=== PATIENT | female | born 1945 | race Caucasian/White ===

== ENCOUNTER 2016-10-07 07:10 | Day surgery (SDC) | payer MEDICARE, BC ==
[~2016-10-07 07:10] MED LIST: Acetaminophen TAB* 325 MG PO PRN; Buffered Lidocaine 0.9% SYRIN* 5 ML/SYR SYRINGE INTRADERM ONE
[2016-10-07] MEDS ORDERED: Midazolam* 1 MG/ML 2 ML VIAL (2 MG) ONE (08:03)
[2016-10-07] MEDS ORDERED: fentaNYL* 50 MCG/ML 2 ML VIAL (100 MCG VIAL) ONE (08:03)
[2016-10-07 09:21] VITALS: BP 108/55
--- NOTE | 2016-10-07 09:28 | OP ---
DATE OF OPERATION: 10/07/2016. DATE OF : 1945. SURGEON: Kieran Hanson M.D. PREOPERATIVE DIAGNOSIS: Cataract left eye. POSTOPERATIVE DIAGNOSIS: Cataract left eye. OPERATIVE PROCEDURE: Phacoemulsification left eye with IOL. PROCEDURE: The patient was brought to the operating room after being given 1/2% Alcaine with epinep hrine drops in the preoperative area. The eye was prepped and draped in the usual sterile fashion. Sterile drape and eyelid speculum were placed. Again, topical 1/2% Alcaine with epinephrine was gi bushra. A paracentesis incision was made at the 3 o'clock position with the No.75 blade. Clear cornea incision 2.2 x 2.2-mm was created at the 6 o'clock position starting at the anterior limbus using t he 2.2-mm keratome. The anterior chamber was irrigated with 0.4 mL of 1% non-preservative intracame ral lidocaine and filled with DisCoVisc. A capsulorrhexis was completed using the cystotome and the Utrata forceps. Hydrodissection was performed with balanced salt solution. The lens nucleus was re moved with the Phacoemulsification handpiece without incident. Cortex was removed with the irrigati on-aspiration handpiece. The capsular bag was re-inflated using DisCoVisc and an [id number] implant was inserted with the shooter. The irrigation-aspiration handpiece was used to remove all residual DisCoVisc. The eye was refilled with balanced salt solution and the wound checked and found to be w atertight. Topical Maxitrol drops were given. [id number]/[facility] #: [id number]
[2016-10-07] MEDS ORDERED: Povidone Iodine 5% OPTH* 30 ML BTL ONE (10:04)
[2016-10-07] MEDS ORDERED: Proparacaine 0.5% OPHTH.SOL* 15 ML BTL ONE (10:04)
[2016-10-07] MEDS ORDERED: acetaZOLAMIDE TAB* 250 MG ONE (10:04)
[2016-10-07] MEDS ORDERED: Flurbiprofen 0.03% OPTH.SOL* 2.5 ML BTL ONE (10:04)
[2016-10-07] MEDS ORDERED: Buffered Lidocaine 0.9% SYRIN* 5 ML/SYR SYRINGE ONE (10:04)
[2016-10-07] MEDS ORDERED: Cyclopentolate 1% OPTH.SOL* 2 ML BTL ONE (10:04)
[2016-10-07] MEDS ORDERED: Lidocaine 1% MPF* 2 ML VIAL ONE (10:04)
[2016-10-07] MEDS ORDERED: Phenylephrine 2.5% OPTH.SOL* 2 ML BTL ONE (10:04)
[2016-10-07] MEDS ORDERED: Neomycin/Polymy/Dex OPTH.SUSP* MAXITROL 0.1% 5 ML ONE (10:04)
== END 2016-10-07 09:17 | disposition home or self-care (01) ==
LOC: OREAST 07:10
PROVIDERS: ATTEND Specialist
DX: H25.812 Combined forms of age-related cataract, left eye (principal); H35.372 Puckering of macula, left eye; Z87.891 Personal history of nicotine dependence
CPT/HCPCS: A9270-GY; J2250; J3010; V2632

== ENCOUNTER 2016-10-21 09:13 | Day surgery (SDC) | payer MEDICARE, BC ==
[2016-10-21] MEDS ORDERED: acetaZOLAMIDE TAB* 250 MG ONE (10:40)
[2016-10-21] MEDS ORDERED: Povidone Iodine 5% OPTH* 30 ML BTL ONE (10:40)
[2016-10-21] MEDS ORDERED: Cyclopentolate 1% OPTH.SOL* 2 ML BTL ONE (10:40)
[2016-10-21] MEDS ORDERED: Neomycin/Polymy/Dex OPTH.SUSP* MAXITROL 0.1% 5 ML ONE (10:40)
[2016-10-21] MEDS ORDERED: Lidocaine 1% MPF* 2 ML VIAL ONE (10:40)
[2016-10-21] MEDS ORDERED: Phenylephrine 2.5% OPTH.SOL* 2 ML BTL ONE (10:40)
[2016-10-21] MEDS ORDERED: Proparacaine 0.5% OPHTH.SOL* 15 ML BTL ONE (10:41)
[2016-10-21] MEDS ORDERED: Buffered Lidocaine 0.9% SYRIN* 5 ML/SYR SYRINGE ONE (10:41)
[2016-10-21] MEDS ORDERED: Ketorolac 0.5% OPHTH (NF) 0.5 % 5 ML BTL ONE (10:41)
[2016-10-21] MEDS ORDERED: fentaNYL* 50 MCG/ML 2 ML VIAL (100 MCG VIAL) ONE (11:25)
[2016-10-21] MEDS ORDERED: Midazolam* 1 MG/ML 2 ML VIAL (2 MG) ONE ×2 (11:25→11:41)
[2016-10-21 12:55] VITALS: BP 113/79
--- NOTE | 2016-10-21 13:16 | OP ---
DATE OF OPERATION: 10/21/2016. DATE OF : 1945. SURGEON: Kieran Hanson M.D. PREOPERATIVE DIAGNOSIS: Cataract right eye. POSTOPERATIVE DIAGNOSIS: Cataract right eye. OPERATIVE PROCEDURE: Phacoemulsification right eye with IOL. PROCEDURE: The patient was brought to the operating room after being given 1/2% Alcaine with epinep hrine drops in the preoperative area. The eye was prepped and draped in the usual sterile fashion. Sterile drape and eyelid speculum were placed. Again, topical 1/2% Alcaine with epinephrine was gi bushra. A paracentesis incision was made at the 9 o'clock position with the No.75 blade. Clear cornea incision 2.2 x 2.2-mm was created at the 12 o'clock position starting at the anterior limbus using the 2.2-mm keratome. The anterior chamber was irrigated with 0.4 mL of 1% non-preservative intracam eral lidocaine and filled with DisCoVisc. A capsulorrhexis was completed using the cystotome and madai e Utrata forceps. Hydrodissection was performed with balanced salt solution. The lens nucleus was r emoved with the Phacoemulsification handpiece without incident. Cortex was removed with the irrigat ion-aspiration handpiece. The capsular bag was re-inflated using DisCoVisc and an [id number] implant was inserted with the shooter. The irrigation-aspiration handpiece was used to remove all residual DisCoVisc. The eye was refilled with balanced salt solution and the wound checked and found to be watertight. Topical Maxitrol drops were given. [id number]/[facility] #: [id number]
== END 2016-10-21 12:53 | disposition home or self-care (01) ==
LOC: OREAST 09:13
PROVIDERS: ATTEND Specialist
DX: H25.811 Combined forms of age-related cataract, right eye (principal); H35.372 Puckering of macula, left eye
CPT/HCPCS: A9270-GY; J2250; J3010; V2632

== ENCOUNTER 2018-08-23 08:26 | Emergency (ER) | payer MEDICARE, BC ==
[2018-08-23 08:38] VITALS: BP 122/60
--- NOTE | 2018-08-23 08:50 | UC ---
Skin Complaint HPI - HPI Summary HPI Summary: right hand pain x 2 days pain is 3 out of 10 , no known injury , ? insect bite pain is worse with using her right hand , better with rest associated sx: redness, swelling, warm to touch , denies any fever, no chills - History of Current Complaint Chief Complaint: UCUpperExtremity Time Seen by Provider: 08/23/18 08:32 Stated Complaint: RT HAND INJURY Hx Obtained From: Patient Onset/Duration: Gradual Onset, Lasting Days - 2, Still Present Timing: Constant Onset Severity: Moderate Current Severity: Moderate Pain Intensity: 3 Location: Discrete - right hand Character: Swelling, Pain, Redness, Raised, Painful Aggravating Factor(s): Touch Alleviating Factor(s): Nothing Associated Signs & Symptoms: Positive: Tenderness. Negative: Nausea, Vomiting, Numbness, Weakness, Fever, Chills, Red Streaks - Allergy/Home Medications Allergies/Adverse Reactions: Allergies Allergy/AdvReac Type Severity Reaction Status Date / Time shellfish derived Allergy Diarrhea Verified 08/23/18 08:38 PMH/Surg Hx/FS Hx/Imm Hx Previously Healthy: Yes - Surgical History Surgical History: Yes Surgery Procedure, Year, and Place: appendectomy 30-40 years ago. tonsillectomy as a child - Family History Known Family History: Positive: Non-Contributory - Social History Alcohol Use: Rare Substance Use Type: None Smoking Status (MU): Never Smoked Tobacco Review of Systems All Other Systems Reviewed And Are Negative: Yes Constitutional: Positive: Negative Eyes: Positive: Negative ENT: Positive: Negative Is Patient Immunocompromised?: No Physical Exam Triage Information Reviewed: Yes Appearance: Well-Appearing, No Pain Distress, Well-Nourished Vital Signs: Initial Vital Signs Temp 98 F 08/23/18 08:32 Pulse 68 08/23/18 08:32 Resp 18 08/23/18 08:32 BP 122/60 08/23/18 08:32 Pulse Ox 98 08/23/18 08:32 Vital Signs Reviewed: Yes Eye Exam: Normal Eyes: Positive: Conjunctiva Clear ENT: Positive: Normal ENT inspection, Hearing grossly normal, Pharynx normal Neck exam: Normal Respiratory: Positive: Chest non-tender, Lungs clear, Normal breath sounds Cardiovascular: Positive: RRR, No Murmur, Pulses Normal Skin: Positive: Other - right hand : + swelling, erythema, tender to touch , warm to touch Course/Dx - Diagnoses Provider Diagnosis: Cellulitis of right hand Discharge - Sign-Out/Discharge Documenting (check all that apply): Patient Departure All imaging exams completed and their final reports reviewed: No Studies - Discharge Plan Condition: Stable Disposition: HOME Prescriptions: Cephalexin CAP* [Keflex CAP*] 500 mg PO TID #30 cap Patient Education Materials: Cellulitis (DC) Referrals: Blanche Headley MD [Primary Care Provider] - 5 Days - Billing Disposition and Condition Condition: STABLE Disposition: Home
== END 2018-08-23 08:54 | disposition home or self-care (01) ==
LOC: UCEAST 08:26
DX: L03.113 Cellulitis of right upper limb (principal)
CPT/HCPCS: 99212; G0463

== ENCOUNTER 2018-09-13 11:43 | Emergency (ER) | payer MEDICARE, BC ==
[2018-09-13 12:24] VITALS: BP 134/59
--- NOTE | 2018-09-13 12:45 | UC ---
Complaint Female HPI - HPI Summary HPI Summary: 72 yo female presents with 2 complaints: 1) This morning she developed urinary frequency, burning, and bladder pressure. She has had many UTIs in the past and states this feels the same. She took AZO this morning and felt much better. 2) She tells me that about 1 month ago she was placed on keflex for a hand cellulitis and developed hives while taking this. She states that she "never had trouble breathing" so she dealt with the hives and continued the keflex. Since taking the keflex she has felt that she has "low energy". She is eating and drinking well, but states she feels that her energy is not what it used to be. She has an appt next week with her PCP to discuss this. Denies fever, chills, headache, dizziness, SOB, chest pain, palpitations, abdominal pain, n/v, flank pain, hematuria - History Of Current Complaint Chief Complaint: UCGU Stated Complaint: URINE ISSUES Time Seen by Provider: 09/13/18 12:45 Hx Obtained From: Patient Onset/Duration: Gradual Onset Severity Initially: Mild Severity Currently: Mild Pain Intensity: 2 Pain Scale Used: 0-10 Numeric - Allergies/Home Medications Allergies/Adverse Reactions: Allergies Allergy/AdvReac Type Severity Reaction Status Date / Time cephalexin [From Keflex] Allergy Hives Verified 09/13/18 12:21 shellfish derived Allergy Diarrhea Verified 08/23/18 08:38 PMH/Surg Hx/FS Hx/Imm Hx - Additional Past Medical History Additional PMH: None - Surgical History Surgical History: Yes Surgery Procedure, Year, and Place: appendectomy 30-40 years ago. tonsillectomy as a child - Family History Known Family History: Positive: Non-Contributory - Social History Occupation: Retired Lives: With Family Alcohol Use: Rare Substance Use Type: None Smoking Status (MU): Never Smoked Tobacco Review of Systems All Other Systems Reviewed And Are Negative: Yes Constitutional: Positive: Fatigue Skin: Positive: Negative Eyes: Positive: Negative ENT: Positive: Negative Respiratory: Positive: Negative Cardiovascular: Positive: Negative Gastrointestinal: Positive: Negative Genitourinary: Positive: Dysuria Neurovascular: Positive: Negative Neurological: Positive: Negative Psychological: Positive: Negative Physical Exam - Summary Physical Exam Summary: GENERAL: NAD. WDWN. No pain distress. SKIN: No rashes, sores, or open wounds. HEENT: Head: AT/NC Eyes: PERRLA. EOM intact. Conjunctiva clear without inflammation or discharge. Ears: Hearing grossly normal. TMs intact, no bulging, erythema, or edema. Nose: Nasal mucosa pink and moist. NTTP maxillary and frontal sinus. Throat: Posterior oropharynx without exudates, erythema, or tonsillar enlargement. Uvula midline. NECK: Supple. Nontender. No lymphadenopathy. CHEST: CTAB. No r/r/w. No accessory muscle use. Breathing comfortably and in no distress. CV: RRR. Without m/r/g. Pulses intact. Brisk cap refill. ABDOMEN: Soft. NTTP. No distention or guarding. No CVA tenderness. Bowel sounds present MSK: FROM and 5/5 strength throughout. No edema. NEURO: Alert. PSYCH: Age appropriate behavior. Triage Information Reviewed: Yes Vital Signs: Initial Vital Signs Temp 97.8 F 09/13/18 12:20 Pulse 72 09/13/18 12:20 Resp 16 09/13/18 12:20 BP 134/59 09/13/18 12:20 Pulse Ox 100 09/13/18 12:20 Laboratory Tests 09/13/18 12:48 POC Urine Color Red A POC Urine Clarity Cloudy POC Urine pH 5.0 POC Ur Specif [place] 1.010 POC Urine Protein 1+ A POC Ur Glucose (UA) Trace A POC Urine Ketones Trace A POC Urine Blood Trace-intact A POC Urine Nitrite Positive A POC Urine Bilirubin 1+ A POC Urine Urobilinogen 2.0 A POC U Leukocyte Esteras 1+ A Vital Signs Reviewed: Yes Complaint Female Dx - Course Course Of Treatment: UA unreliable as pt took AZO. Will treat for UTI with Bactrim. Regarding her "low energy" will draw for CBC, CMP, TSH, and lyme and have her keep her f/u with her PCP next week for lab review and further evaluation. - Differential Dx/Diagnosis Provider Diagnosis: UTI (urinary tract infection), Fatigue Discharge - Sign-Out/Discharge Documenting (check all that apply): Patient Departure All imaging exams completed and their final reports reviewed: No Studies - Discharge Plan Condition: Stable Disposition: HOME Prescriptions: Sulfamethox/Trimethoprim DS* [Bactrim DS 800/160 TAB*] 1 tab PO BID #10 tab Patient Education Materials: Urinary Tract Infection in Women (ED) Referrals: Blanche Headley MD [Primary Care Provider] - Additional Instructions: If you develop a fever, shortness of breath, chest pain, new or worsening symptoms - please call your PCP or go to the ED immediately. Keep your appointment next week with Dr. Choe to review your labwork and for further evaluation of your low energy - Billing Disposition and Condition Condition: STABLE Disposition: Home
[2018-09-13 19:39] LABS: ABS Eosinophils 0.1 10^3/ul (0-0.6); ABS Lymphocytes 0.6 10^3/ul (1.0-4.8); ABS Monocytes 0.3 10^3/ul (0-0.8); ABS Neutrophils 8.9 10^3/ul (1.5-7.7); Eosinophil % 1.3 %; Hematocrit 40 % (35-47); Hemoglobin 13.9 g/dL (12.0-16.0); Lymphocyte % 6.4 %; Mean Corpuscular HGB Conc 35 g/dL (31-36); Mean Corpuscular Hemoglobin 31 pg (27-31); Mean Corpuscular Volume 90 fL (80-97); Mean Platelet Volume 8.9 fL (7.4-10.4); Nucleated Red Blood Cells % 0.1; Platelet Count 344 10^3/uL (150-450); Red Blood Count 4.45 10^6 /uL (3.70-4.87); Red Cell Distribution Width 13 % (10-15); White Blood Count 9.9 10^3/uL (3.5-10.8)
[2018-09-13 19:42] LABS: Potassium 4.5 mmol/L (3.5-5.0); Total Bilirubin 0.9 mg/dL (0.2-1.0)
[2018-09-13 19:48] LABS: Albumin/Globulin Ratio 1.7 (1-3); EGFR African American 96.6 (>60); EGFR Non-African American 79.9 (>60); Globulin 2.4 g/dL (2-4); Total Protein 6.4 g/dL (6.4-8.9)
[2018-09-13 20:02] LABS: TSH (Thyroid Stimulating Horm) 1.61 mcIU/mL (0.34-5.60)
--- NOTE | 2018-09-14 17:31 | UC ---
- Progress Note Progress Note: Pt with + pseudomonas culture pending on bactrim - won't cover sent Rx cipro (please confirm allergies) d/c bactrim f/u with PCP recheck sensitivities tmrw Course/Dx - Diagnoses Provider Diagnoses: UTI (urinary tract infection), Fatigue Discharge - Sign-Out/Discharge Documenting (check all that apply): Post-Discharge Follow Up All imaging exams completed and their final reports reviewed: No Studies - Discharge Plan Condition: Stable Disposition: HOME Prescriptions: Ciprofloxacin HCl [Cipro] 500 mg PO BID #14 tablet Patient Education Materials: Urinary Tract Infection in Women (ED) Referrals: Blanche Headley MD [Primary Care Provider] - Additional Instructions: If you develop a fever, shortness of breath, chest pain, new or worsening symptoms - please call your PCP or go to the ED immediately. Keep your appointment next week with Dr. Choe to review your labwork and for further evaluation of your low energy - Billing Disposition and Condition Condition: STABLE Disposition: Home
--- NOTE | 2018-09-15 12:14 | UC ---
- Progress Note Progress Note: Lyme IgG, IgM positive, sent for confirmatory test. Discussed with Dr. Mendoza and will wait for result of confirmatory test. Pt had no hx of tick bite per notes. Course/Dx - Diagnoses Provider Diagnoses: UTI (urinary tract infection), Fatigue Discharge - Sign-Out/Discharge Documenting (check all that apply): Post-Discharge Follow Up All imaging exams completed and their final reports reviewed: No Studies - Discharge Plan Condition: Stable Disposition: HOME Prescriptions: Ciprofloxacin HCl [Cipro] 500 mg PO BID #14 tablet Patient Education Materials: Urinary Tract Infection in Women (ED) Referrals: Blanche Headley MD [Primary Care Provider] - Additional Instructions: If you develop a fever, shortness of breath, chest pain, new or worsening symptoms - please call your PCP or go to the ED immediately. Keep your appointment next week with Dr. Choe to review your labwork and for further evaluation of your low energy - Billing Disposition and Condition Condition: STABLE Disposition: Home
--- NOTE | 2018-09-15 20:07 | UC ---
- Progress Note Progress Note: The patient call back here because of the left message we had left yesterday about the need to change the Bactrim to Cipro because of the urine culture results. Patient is presently in [place] so I was able to call the [facility] pharmacy in [id number] with phone number [phone]. The Cipro prescription was called in to the pharmacy. The patient is aware she can pick that up. Course/Dx - Diagnoses Provider Diagnoses: UTI (urinary tract infection), Fatigue Discharge - Sign-Out/Discharge Documenting (check all that apply): Post-Discharge Follow Up All imaging exams completed and their final reports reviewed: No Studies - Discharge Plan Condition: Stable Disposition: HOME Prescriptions: Ciprofloxacin HCl [Cipro] 500 mg PO BID #14 tablet Patient Education Materials: Urinary Tract Infection in Women (ED) Referrals: Blanche Headley MD [Primary Care Provider] - Additional Instructions: If you develop a fever, shortness of breath, chest pain, new or worsening symptoms - please call your PCP or go to the ED immediately. Keep your appointment next week with Dr. Choe to review your labwork and for further evaluation of your low energy - Billing Disposition and Condition Condition: STABLE Disposition: Home
== END 2018-09-13 13:20 | disposition home or self-care (01) ==
LOC: UCEAST 11:43
DX: N39.0 Urinary tract infection, site not specified (principal); R53.83 Other fatigue
CPT/HCPCS: 36415; 80053; 81003; 84443; 85025; 86617; 86618; 87077; 87086; 87186; 99212; G0463